=== PATIENT | male | born 1995 | race African-American/Black ===

== ENCOUNTER 2017-06-29 11:21 | Emergency (ER) | payer SELFPAY ==
[~2017-06-29] VITALS: Ht 195.6 cm; Wt 98.0 kg
[~2017-06-29 11:21] MED LIST: BACT2OIN TOP; Z.0.NO CURRENT MEDS
[2017-06-29 11:25] VITALS: BP 137/81; PULSE 102; RESP 16; TEMP 98.6; O2SAT 99
[2017-06-29] MEDS ORDERED: PRED20 PO (11:51)
[2017-06-29] MEDS ORDERED: BACT800T5 PO (11:51)
--- NOTE | 2017-06-29 11:53 | PD ---
HPI Chief Complaint: Bite or Sting Time Seen by Provider: 11:40 Travel History International Travel<30 days: No Contact w/Intl Traveler<30days: No Traveled to known affect area: No History of Present Illness HPI This patient complains of insect bites to his feet and ankles. They've become blistered and draining. Symptoms severity is mild to moderate PFSH Past Medical History Developmental Delay: No Diminished Hearing: No Immunizations Current: Yes Social History Alcohol Use: Yes (DAILY 2-3) Tobacco Use: Yes ("SOME") Substance Use: Yes (LSD, "WEED") Allergies-Medications (Allergen,Severity, Reaction): Coded Allergies: No Known Allergies (Unverified , 06/24/13) Reported Meds & Prescriptions Reported Meds & Active Scripts Active Bactrim DS (Sulfamethoxazole-Trimethoprim) 800-160 Mg Tab 1 Tab PO BID Prednisone 20 Mg Tab 20 Mg PO DAILY 5 Days Review of Systems General / Constitutional: No: Fever HENT: No: Headaches Cardiovascular: No: Chest Pain or Discomfort Physical Exam Narrative Psych: Normal mood and affect. Normal insight and judgment. GASTROINTESTINAL: Abdomen soft, non-tender, nondistended. Positive bowel sounds. No hepato-splenomegaly, or palpable masses. No guarding. feet: Has several blistered lesions some draining. Some of yellow honey crusting with minimal erythema Data Data Last Documented VS Vital Signs Date Time Temp Pulse Resp B/P (MAP) Pulse Ox O2 Delivery O2 Flow Rate FiO2 06/29/17 11:25 98.6 102 16 137/81 (99) 99 MDM Medical Decision Making Medical Screen Exam Complete: Yes Emergency Medical Condition: Yes Medical Record Reviewed: Yes Differential Diagnosis Cellulitis, allergic reaction, bug bites Narrative Course I have reviewed the patient's electronic medical record. Patient looks like to have some infected lesions but also some degree of allergic response. He will use some Benadryl and I wrote prescription for prednisone and Bactrim Diagnosis Primary Impression: Infected skin lesion Additional Impression: Allergic reaction Qualified Codes: T78.40XA - Allergy, unspecified, initial encounter Additional Instructions: The patient was advised to follow up with their physician and return if they worsen. Med/Other Pt SpecificInfo: Prescription(s) given Scripts Sulfamethoxazole-Trimethoprim (Bactrim DS) 800-160 Mg Tab 1 TAB PO BID for Infection, #14 TAB 0 Refills Prov: Darvin Figueroa MD 06/29/17 Prednisone (Prednisone) 20 Mg Tab 20 MG PO DAILY for 5 Days, TAB 0 Refills Prov: Darvin Figueroa MD 06/29/17 Disposition: 01 DISCHARGE HOME Condition: Stable Darvin Figueroa MD Jun 29, 2017 11:53
== END 2017-06-29 12:17 | disposition home or self-care (01) ==
LOC: NEPD 11:21
DX: L98.8 Other specified disorders of the skin and subcutaneous tissue (principal); T78.40XA Allergy, unspecified, initial encounter; Z72.0 Tobacco use
CPT/HCPCS: 99284

== ENCOUNTER 2017-08-13 03:22 | Emergency (ER) | payer SELFPAY ==
[~2017-08-13] VITALS: Ht 195.6 cm; Wt 98.0 kg
[~2017-08-13 03:22] MED LIST changes: -BACT2OIN TOP; +BACT800T5 PO; +PRED20 PO; -Z.0.NO CURRENT MEDS
[2017-08-13 03:26] VITALS: BP 113/61; PULSE 62; RESP 16; TEMP 96.7; O2SAT 100
[2017-08-13] MEDS ORDERED: SODIUM CHLOR 0.9% 1000 ML INJ 1,000 ML IV SCH (03:58)
[2017-08-13] MEDS ORDERED: methylPREDNISolone SOD SUCC 125 MG/2 ML VIAL IV PUSH ONE (04:00)
[2017-08-13] MEDS ORDERED: FAMOTIDINE 20 MG/2 ML VIAL IV PUSH ONE (04:00)
[2017-08-13] MEDS ORDERED: diphenhydrAMINE HCL 50 MG/ML VIAL IVP ONE (04:00)
[2017-08-13] MEDS ORDERED: SODIUM CHLORIDE 0.9% FLUSH 10 ML FLUSH IV FLUSH PRN (04:00)
--- NOTE | 2017-08-13 04:39 | PD ---
HPI Chief Complaint: Skin Problem Time Seen by Provider: 03:55 Travel History International Travel<30 days: No Contact w/Intl Traveler<30days: No Traveled to known affect area: No History of Present Illness HPI Patient is a 22-year-old male presenting to emergency for evaluation of an allergic reaction. Patient denies any new foods, soaps, lotions, detergents. He states that he was cleaning his kitchen with Marisela washing detergent and started breaking out on his upper arms and chest, he went to bed and when he woke up just prior to arrival it was on his legs as well. He states that he uses that cleaning agent all the time. He denies any fevers, wheezing, shortness of breath. He states that he feels itchy and irritated. [facility]LY [facility] Past Medical History Medical History: Denies Significant Hx Developmental Delay: No Diminished Hearing: No Immunizations Current: Yes Tetanus Vaccination: Unknown Influenza Vaccination: No Past Surgical History Surgical History: No Previous Surgery Social History Alcohol Use: No Tobacco Use: No Substance Use: Yes ("WEED", HX LSD) Allergies-Medications (Allergen,Severity, Reaction): Coded Allergies: No Known Allergies (Unverified , 08/13/17) Reported Meds & Prescriptions Reported Meds & Active Scripts Active No Active Prescriptions or Reported Medications Review of Systems Except as stated in HPI: all other systems reviewed are Neg Skin: Positive Rash, Positive Itching, Positive Hives Physical Exam Narrative GENERAL: Well-developed, well-nourished, alert male. SKIN: Warm and dry. Hives to bilateral lower extremities. HEAD: Normocephalic. EYES: No scleral icterus. No injection or drainage. NECK: Supple, trachea midline. No JVD or lymphadenopathy. CARDIOVASCULAR: Regular rate and rhythm without murmurs, gallops, or rubs. RESPIRATORY: Breath sounds equal bilaterally. No accessory muscle use. No wheezes, rhonchi, rales noted. GASTROINTESTINAL: Abdomen soft, non-tender, nondistended. MUSCULOSKELETAL: No cyanosis, or edema. BACK: Nontender without obvious deformity. No CVA tenderness. Data Data Last Documented VS Vital Signs Date Time Temp Pulse Resp B/P (MAP) Pulse Ox O2 Delivery O2 Flow Rate FiO2 08/13/17 03:26 96.7 62 16 113/61 (78) 100 Room Air Orders Orders Iv Access Insert/Monitor (08/13/17 03:58) Diphenhydramine Inj (Benadryl Inj) (08/13/17 04:00) Methylprednisolone So Succ Inj (Solumedr (08/13/17 04:00) Famotidine Inj (Pepcid Inj) (08/13/17 04:00) Sodium Chlor 0.9% 1000 Ml Inj (Ns 1000 M (08/13/17 03:58) Sodium Chloride 0.9% Flush (Ns Flush) (08/13/17 04:00) MDM Medical Decision Making Medical Screen Exam Complete: Yes Emergency Medical Condition: Yes Interpretation(s) Vital Signs Date Time Temp Pulse Resp B/P (MAP) Pulse Ox O2 Delivery O2 Flow Rate FiO2 08/13/17 03:26 96.7 62 16 113/61 (78) 100 Room Air Differential Diagnosis Contact dermatitis versus allergic reaction versus anaphylaxis versus other Narrative Course Patient is a 22-year-old male presenting to the emergency department for evaluation of hives. He denies any new contacts with possible irritants. Medications order to alleviate symptoms.. Patient's vital signs are stable. Patient reports improvement in his symptoms after administration of medications. Upon reassessment hives have cleared. Patient was resting comfortably. He was encouraged to continue with [id number] Benadryl as needed and as directed for itching. Patient was given a short course of oral steroids. He was encouraged to return to emergency department for any new or worsening symptoms. Patient verbalized understanding of instructions. Patient is stable for discharge. Diagnosis Primary Impression: Acute urticaria Additional Impression: Hives Referrals: Primary Care Physician Patient Instructions: General Allergic Reaction (ED), General Instructions Additional Instructions: Take medications as directed Obtain [id number] Benadryl and take as needed and as directed for itching Return to emergency department immediately for any new or worsening symptoms Med/Other Pt SpecificInfo: Prescription(s) given Scripts Ranitidine (Ranitidine) 150 Mg Tab 150 MG PO BID for Heartburn Management for 10 Days, #20 TAB 0 Refills Prov: Stefania Pink 08/13/17 Prednisone (Prednisone) 50 Mg Tab 50 MG PO DAILY for 5 Days, #5 TAB 0 Refills Prov: Stefania Pink 08/13/17 Disposition: 01 DISCHARGE HOME Condition: Stable Stefania Pink Aug 13, 2017 04:39
[2017-08-13] MEDS ORDERED: PRED50 PO (05:18)
[2017-08-13] MEDS ORDERED: RANI150T PO (05:18)
== END 2017-08-13 06:31 | disposition home or self-care (01) ==
LOC: NEPD 03:22
DX: L50.9 Urticaria, unspecified (principal); F12.90 Cannabis use, unspecified, uncomplicated
CPT/HCPCS: 96361; 96374; 96375; 99284; J1200; J2930; J7030